=== PATIENT | male | born 1990 | race Caucasian/White ===

== ENCOUNTER 2017-01-12 09:17 | Emergency (ER) | payer SELFPAY ==
[~2017-01-12] VITALS: Ht 170.2 cm; Wt 77.1 kg
[2017-01-12 09:30] VITALS: BP 161/82
[2017-01-12] MEDS ORDERED: PREDNISONE20 MG ORAL (09:44)
[2017-01-12] MEDS ORDERED: ALBUTEROL SULF8.5 GM INH (09:44)
[2017-01-12 09:48] VITALS: BP 140/82
--- NOTE | 2017-01-12 10:28 | Emergency Room Report ---
History of Present Illness General Chief Complaint: Asthma Source: Patient Present Illness HPI 26-year-old male presents ED for violation. States that he has history of asthma and was short of breath last night. Patient states that he usually uses an inhaler and Advair but does not have either medication. Denies any shortness of breath at this time. Denies cough. Denies fevers or chills. Denies smoking. Denies sick contacts or recent travel. No aggravating relieving factors. Denies any other associated symptoms Allergies: Coded Allergies: Cultivated Oat Pollen (Verified Allergy, Mild, 01/12/17) Patient History Past Medical History: asthma Past Surgical History: none Pertinent Family History: none Social History: Denies: smoking, alcohol use, drug use Immunizations: UTD Reviewed Nursing Documentation: PMH: Agreed, PSxH: Agreed Nursing Documentation-PMH Past Medical History: No History, Except For Hx Asthma: Yes Review of Systems All Other Systems: negative except mentioned in HPI Physical Exam Vital Signs Date Time Temp Pulse Resp B/P (MAP) Pulse Ox O2 Delivery O2 Flow Rate FiO2 01/12/17 09:23 97.2 62 16 161/82 98 Room Air Sp02 EP Interpretation: reviewed, normal General Appearance: no apparent distress, alert, GCS 15, non-toxic Head: normocephalic, atraumatic Eyes: bilateral eye normal inspection, bilateral eye PERRL ENT: hearing grossly normal, normal pharynx, no angioedema, normal voice Neck: full range of motion, supple/symm/no masses Respiratory: chest non-tender, lungs clear, normal breath sounds, speaking full sentences Cardiovascular #1: regular rate, rhythm, no edema Cardiovascular #2: 2+ carotid (R), 2+ carotid (L), 2+ radial (R), 2+ radial (L) , 2+ dorsalis pedis (R), 2+ dorsalis pedis (L) Gastrointestinal: normal bowel sounds, non tender, soft, non-distended, no guarding, no rebound Rectal: deferred Genitourinary: normal inspection, no CVA tenderness Musculoskeletal: back normal, gait/station normal, normal range of motion, non- tender Neurologic: alert, oriented x3, responsive, motor strength/tone normal, sensory intact, speech normal Psychiatric: judgement/insight normal, memory normal, mood/affect normal, no suicidal/homicidal ideation Reflexes: 3+ bicep (R), 3+ bicep (L), 3+ tricep (R), 3+ tricep (L), 3+ knee (R) , 3+ knee (L) Skin: normal color, no rash, warm/dry, well hydrated Lymphatic: no adenopathy Medical Decision Making Diagnostic Impression: Primary Impression: Asthma Qualified Codes: J45.909 - Unspecified asthma, uncomplicated ER Course 26-year-old male presents to ED refill of his medications. History of asthma hospital course: After initial history and exam reveals a male in no acute distress. Lungs clear with good breath sounds. O2 sats normal. Does not require breathing treatments at this time. Patient states that he did not have insurance at this time and cannot afford the Advair. States his insurance will start soon I will prescribe patient albuterol and prednisone. Diagnosis- asthma Stable and discharged to home with prescription for albterol, prednisone. Followup with PMD. Return to ED if symptoms recur or worsen Last Vital Signs Date Time Temp Pulse Resp B/P (MAP) Pulse Ox O2 Delivery O2 Flow Rate FiO2 01/12/17 09:48 97.1 16 140/82 98 Room Air 01/12/17 09:30 62 Status: improved Disposition: HOME, SELF-CARE Condition: Stable Scripts Albuterol Sulfate* (ALBUTEROL SULFATE MDI*) 8.5 Gm Hfa.aer.ad 2 PUFF INH Q6H, #1 EA 0 Refills Prov: REY PORTER M.D. 01/12/17 Prednisone* (PREDNISONE*) 20 Mg Tablet 40 MG ORAL DAILY, #10 TAB Prov: REY PORTER M.D. 01/12/17 Referrals: NOT [facility]/,REFERRING (PCP) Patient Instructions: Asthma, Adult REY PORTER M.D. Jan 12, 2017 10:28
== END 2017-01-12 09:48 | disposition home or self-care (01) ==
LOC: EMR 09:40
DX: J45.909 Unspecified asthma, uncomplicated (principal)
CPT/HCPCS: 99283